=== PATIENT | female | born 1955 | race Caucasian/White ===

== ENCOUNTER 2016-12-31 16:17 | Emergency (ER) | payer BC | END 2016-12-31 20:10 | disposition home or self-care (01) | LOC: ER 16:17 | DX: R11.2 Nausea with vomiting, unspecified (principal); R19.7 Diarrhea, unspecified; R42 Dizziness and giddiness; R10.13 Epigastric pain; Z90.710 Acquired absence of both cervix and uterus; Z90.49 Acquired absence of other specified parts of digestive tract; Z79.891 Long term (current) use of opiate analgesic; Z91.018 Allergy to other foods | CPT/HCPCS: 36415; 96361; 96374; 96375; J0780 ==